=== PATIENT | male | born 2000 | race Caucasian/White ===

== ENCOUNTER 2021-10-02 14:21 | Emergency (ER) | payer SELFPAY ==
[~2021-10-02] VITALS: Ht 167.6 cm; Wt 72.1 kg
[2021-10-02 14:44] VITALS: BP 125/75
--- NOTE | 2021-10-02 17:02 | NUR ---
COLLECTED CECI GARVIN, STREP RAPID AND STREP CULTURE. WALKED TO LAB AT THIS TIME.
[2021-10-02] MEDS ORDERED: KETOROLAC 30 MG/ML VIAL IM ONE (18:00)
[2021-10-02] MEDS ORDERED: NAPR-1704 PO (18:02)
[2021-10-02] MEDS ORDERED: CHLSPR MM (18:02)
--- NOTE | 2021-10-02 18:10 | NUR ---
Patient discharged with v/s stable. Written and verbal after care instructions given FOR PHARYNGITIS and explained. Patient alert, oriented and verbalized understanding of instructions. Ambulatory with steady gait. All questions addressed prior to discharge. ID band removed. Patient advised to follow up with PMD. Rx of NAPROXEN, AND PHENOL given. Patient educated on indication of medication including possible reaction and side effects. Opportunity to ask questions provided and answered.
--- NOTE | 2021-10-02 18:45 | NUR ---
patient called for medication. no response
== END 2021-10-02 18:10 | disposition home or self-care (01) ==
LOC: MED 14:21
DX: J02.9 Acute pharyngitis, unspecified (principal); Z20.822 Contact with and (suspected) exposure to COVID-19; Z79.899 Other long term (current) drug therapy
CPT/HCPCS: 87081; 99283; J1885